=== PATIENT | male | born 2005 | race Caucasian/White ===

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

== ENCOUNTER 2023-08-06 16:34 | Emergency (ER) | payer MEDICAID, SELFPAY ==
[2023-08-06] VITALS (7 sets, daily range): BP systolic 105–142; BP diastolic 63–93; PULSE 67–96; RESP 15–21; TEMP 36.6; O2SAT 96–98; BMI 7469.4
--- NOTE | 2023-08-06 16:40 | XRR_ITS ---
PROCEDURE INFORMATION: Exam: XR Chest Exam date and time: 08/06/2023 4:59 PM Age: 18 years old Clinical indication: Angina pectoris; Patient HX: Chest pain; SOB TECHNIQUE: Imaging protocol: Radiologic exam of the chest. Views: 1 view. COMPARISON: CR XR ribs RT 2V* [id number] 04/02/2019 9:10 AM FINDINGS: Lungs: Lung volumes are large. Lungs are clear. There is an incidental right azygos lobe and fissure. Pleural spaces: No definite pleural effusions or pneumothorax. Heart/Mediastinum: Normal. Bones/joints: Unremarkable. XR/XR chest 1V portable [id number] IMPRESSION: Normal.
--- NOTE | 2023-08-06 16:43 | ECG_ITS ---
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 Measurements Intervals [place] Rate: 115 P: 62 MT: 101 QRS: 83 QRSD: 93 T: -20 QT: 319 QTc: 443 Interpretive Statements SINUS TACHYCARDIA WITH SHORT MT INTERVAL NONSPECIFIC ST & T-WAVE ABNORMALITY No previous ECG available for comparison Electronically Signed On 08-07-2023 8:36:49 WOODWINDS TEACHER by Mukund Sawant M.D. [email or web address]
[2023-08-06 17:40] LABS: Basophils % 0.3 %; Eosinophils % 0.2 %; Hematocrit 41.8 % (37-53); Lymphocytes # 1.7 10^3/uL (1.5-6.5); Lymphocytes % 14.6 %; Mean Corpuscular HGB Conc 34.7 g/dL (30-55); Mean Corpuscular Hemoglobin 29.2 pg (27-33); Mean Corpuscular Volume 84.3 fl (82-101); Mean Platelet Volume 9.7 fL (7.4-10.4); Monocytes # 0.8 10^3/uL (0.2-0.9); Monocytes % 7.3 %; Neutrophils # 8.92 10^3/uL (1.8-8.0); Neutrophils % 77.3 %; Nucleated Red Blood Cells % 0 %; Platelet Count 343 10^3/cmm (157-399); Red Blood Count 4.96 10^6/uL (3.85-5.65); Red Cell Distribution Width 12.8 % (12.1-15.1); White Blood Count 11.54 10^3/uL (4.5-13.0)
--- NOTE | 2023-08-06 17:54 | ED_ITS ---
HPI - General Adult 2 General: Chief complaint: General Medical Stated complaint: chest pain, sob Time Seen by Provider: 08/06/23 17:31 History of Present Illness: 18-year-old male who has been using fent anyl daily. His last use was yesterday afternoon. He presents complaining of shortness of breath, rapid breathing, numbness and tingling to his upper extremities, face, and to a lesser degree lower extremities. He is having some mild chest discomfort. He denies fever or cough. He is somewhat improved now. He has been having diarrhea and vomiting as well today. Associated symptoms: Reports chest pain, dyspnea, nausea, palpitations and vomiting; Deny rash Review of Systems 2 Const: Denies: fever(s) Eyes: Denies: change in vision ENMT: Denies: throat pain Card: Reports: chest pain and palpitations Resp: Reports: dyspnea; Denies: productive cough or non-productive cough GI: Reports: abdominal pain, nausea, vomiting and diarrhea Skin/Breast: Denies: rash Neuro: Reports: numbness in extremities and dizziness Psych: Reports: anxiety Physical Exam 2 Const: GENERAL APPEARANCE: cooperative, anxious and ill appearing (Mildly); not frail appearing HENMT: COMMON NORMALS: normocephalic, atraumatic and Normal external nose present HEAD & SCALP: normocephalic and atraumatic FACE & SINUS: normal facial exam and face symmetric NOSE: Normal external nose present Eye: COMMON NORMALS: Equal, round and reactive pupils present and EOMs intact bilaterally PUPIL: Yes Equal, round and reactive pupils present Neck/C-Spine: GENERAL: Yes trachea midline Chest: CHEST: Yes Symmetrical chest wall rise Resp: COMMON NORMALS: No retractions and clear to auscultation bilaterally EFFORT & INSPECTION: Yes tachypneic AUSCULTATION: clear to auscultation bilaterally Cardio: COMMON NORMALS: regular rhythm RATE: tachycardic RHYTHM: regular rhythm GI: COMMON NORMALS: Normal to inspection, nondistended, normoactive bowel sounds present Extremity: COMMON NORMALS: no pedal edema Neuro: STEVENSON COMA SCALE: document GCS findings Stevenson coma scale eye opening: Spontaneous [place] coma scale verbal response: Orientated Stevenson coma scale motor response: Obey commands Stevenson coma scale total score: 15 S ENSORY EXAM: Yes extremities (intact) Psych: COMMON NORMALS: speech normal SPEECH: Yes normal speech Skin: COMMON NORMALS: no rashes or lesions noted GENERAL SKIN EXAM: no rashes or lesions noted Course 2 Vital Signs: Vital signs: Vital Signs Temperature 97.9 F 08/06/23 16:45 Pulse Rate 87 08/06/23 21:21 Respiratory Rate 21 H 08/06/23 21:10 Blood Pressure 105/73 08/06/23 21:21 Pulse Oximetry 98 08/06/23 21:21 Oxygen Delivery Me thod Room Air 08/06/23 21:10 MDM - General Adult Medical Decision Making 18-year-old male withdrawing from opioids. Currently not tachycardic. He is resting comfortably after Ativan and Zofran here. CBC is normal. Bicarbonate is 20. He has received 2 L of fluid. Chest x-ray is normal. His EKG is normal. He will be allowed discharge. If he desires inpatient treatment, he is given resources for [facility] in [facility]. He will otherwise return for worsening symptoms. He will be treated symptomatically. Lab Data 08/06/23 16:57 08/06/23 16:57 Radiology Impressions Chest X-Ray 08/06/23 16:40 IMPRESSION: Normal. Laboratory Results WBC 11.54 10^3/uL (4.5-13.0) 08/06/23 16:57 RBC 4.96 10^6/uL (3.85-5.65) 08/06/23 16:57 Hgb 14.50 g/dL (13.2-15.6) 08/06/23 16:57 Hct 41.8 % (37-53) 08/06/23 16:57 MCV 84.3 fl (82-101) 08/06/23 16:57 MCH 29.2 pg (27-33) 08/06/23 16:57 MCHC 34.7 g/dL (30-55) 08/06/23 16:57 RDW 12.8 % (12.1-15.1) 08/06/23 16:57 Plt Count 343 10^3/cmm (157-399) 08/06/23 16:57 MPV 9.7 fL (7.4-10.4) 08/06/23 16:57 Neut % (Auto) 77.3 % 08/06/23 16:57 Lymph % (Auto) 14.6 % 08/06/23 16:57 [place] % (Auto) 7.3 % 08/06/23 16:57 Eos % (Auto) 0.2 % 08/06/23 16:57 Baso % (Auto) 0.3 % 08/06/23 16:57 Neut # (Auto) 8.92 10^3/uL (1.8-8.0) H 08/06/23 16:57 Lymph # (Auto) 1.7 10^3/uL (1.5-6.5) 08/06/23 16:57 [place] # (Auto) 0.8 10^3/uL (0.2-0.9) 08/06/23 16:57 Eos # (Auto) 0.0 10^3/uL (0.0-0.8) 08/06/23 16:57 Baso # (Auto) 0.0 10^3/uL (0.0-0.1) 08/06/23 16:57 Nucleated RBC % (auto) 0 % 08/06/23 16:57 Nucleated RBCs # 0.0 /100WBC 08/06/23 16:57 Sodium 138 mmol/L (136-145) 08/06/23 16:57 Potassium 3.7 mmol/L (3.5-5.1) 08/06/23 16:57 Chloride 98 mmol/L (98-107) 08/06/23 16:57 Carbon Dioxide 20 mmol/L (22-29) L 08/06/23 16:57 Anion Gap 23.7 (5-19) H 08/06/23 16:57 BUN 14 mg/dL (6-20) 08/06/23 16:57 Creatinine 0.7 mg/dL (0.7-1.2) 08/06/23 16:57 GFR Calculation 143.8 mL/min (90-130) H 08/06/23 16:57 Glucose 103 mg/dL (65-115) 08/06/23 16:57 Calculated Osmolality 287 mOsm/kg (285-295) 08/06/23 16:57 Calcium 10.4 mg/dL (8.5-10.5) 08/06/23 16:57 Magnesium 2.3 mg/dL (1.7-2.3) 08/06/23 16:57 Total Bilirubin 0.4 mg/dL (0.15-1.2) 08/06/23 16:57 AST 21 U/L (0-40) 08/06/23 16:57 ALT 33 U/L (0-41) 08/06/23 16:57 Alkaline Phosphatase 53 U/L (40-130) 08/06/23 16:57 Total Protein 8.6 g/dL (6.6-8.7) 08/06/23 16:57 Albumin 5.4 g/dL (3.5-5.2) H 08/06/23 16:57 Globulin 3.2 g/dL (1.3-4.6) 08/06/23 16:57 Urine Color Yellow (Yellow) 08/06/23 18:59 Urine Appearance Clear (CLEAR) 08/06/23 18:59 Urine pH 9 (5-7) H 08/06/23 18:59 Ur Specific [place] 1.010 (1.005-1.030) 08/06/23 18:59 Urine Protein Neg (Negative) 08/06/23 18:59 Urine Glucose (UA) Norm (Normal) 08/06/23 18:59 Urine Ketones 1+ (Negative) H 08/06/23 18:59 Urine Blood Neg (Negative) 08/06/23 18:59 Urine Nitrate Negative (Negative) 08/06/23 18:59 Urine Bilirubin Neg (Negative) 08/06/23 18:59 Prot Sulfosalicylic Acd Negative (Negative) 08/06/23 18:59 Urine Urobilinogen Norm mg/dL (Negative) 08/06/23 18:59 Ur Leukocyte Esterase Negative (Negative) 08/06/23 18:59 Urine Opiates Screen Negative ng/mL (Negative) 08/06/23 18:59 Ur Barbiturates Screen Negative ng/mL (Negative) 08/06/23 18:59 Ur Phencyclidine Scrn Negative ng/mL (Negative) 08/06/23 18:59 Ur Amphetamines Screen Negative ng/mL (Negative) 08/06/23 18:59 U Benzodiazepines Scrn Negative ng/mL (Negative) 08/06/23 18:59 Urine Cocaine Screen Negative ng/mL (Negative) 08/06/23 18:59 U Marijuana (THC) Screen Positive ng/mL (Negative) H 08/06/23 18:59 All radiology interpretation(s) finalized by discharge Discharge Plan Discharge Patient Disposition: Home Clinical Impression: Acute opioid withdrawal Condition: Stable Prescriptions: New ondansetron 4 mg tablet,disintegrating 4 mg PO Q6H PRN (Reason: nausea and vomiting) Qty: 14 0RF clonidine 0.1 mg/24 hr patch weekly 1 patch transdermal ONCE Qty: 1 0RF No Action Augmentin 875-125 mg tablet 1 tab PO BID Qty: 14 0RF Rx Instructions: take 1 PO BID Discharge Orders: Discharge ED (Routine); Ordered 08/06/23 Ordered By: Sudeep Garvey Referrals: Tyree Osuna MD [Primary Care Provider] - Patient Instructions: Opioid Withdrawal (ED), Opioid Safety, Pain Management Activity Restrictions/Additional Instructions: Take nausea medication prescribed scheduled every 4 hours while awake for the first 48 hours, then as needed after that. Keep your patch applied in the ER on for the next 48 hours at least. Return for any problems. If you desire inpatient rehabilitation, the [facility] here in [facility] is a good resource. Coding Level of Care Code ED Grounds Foreman for Areli Hernandez
[2023-08-06] MEDS: sodium chloride 0.9% 1,000 ML 999 ML IV ×2 (17:58→19:08)
[2023-08-06 18:00] LABS: Alanine Aminotransferase 33 U/L (0-41); Albumin Level 5.4 g/dL (3.5-5.2); Alkaline Phosphatase 53 U/L (40-130); Anion Gap 23.7 (5-19); Aspartate Amino Transferase 21 U/L (0-40); Blood Urea Nitrogen 14 mg/dL (6-20); Calcium 10.4 mg/dL (8.5-10.5); Carbon Dioxide 20 mmol/L (22-29); Chloride 98 mmol/L (98-107); Globulin 3.2 g/dL (1.3-4.6); Glomerular Filtration Rate 143.8 mL/min (90-130); Glucose 103 mg/dL (65-115); Magnesium 2.3 mg/dL (1.7-2.3); Osmolality Calculated 287 mOsm/kg (285-295); Potassium 3.7 mmol/L (3.5-5.1); Sodium 138 mmol/L (136-145); Total Bilirubin 0.4 mg/dL (0.15-1.2); Total Protein 8.6 g/dL (6.6-8.7)
[2023-08-06] MEDS: ondansetron 2 mg/ML SDV 2 mL 4 MG IVP (18:00)
[2023-08-06] MEDS: LORazepam 2 mg/mL INJ 10 mL MDV 1 MG IVP (18:02)
[2023-08-06 19:06] LABS: Add Urine Microscopic? NO; Charge for UA Resulting for Rev
[2023-08-06 19:12] LABS: Urine Appearance Clear (CLEAR); Urine Color Yellow (Yellow)
[2023-08-06 19:13] LABS: Bilirubin Urine Neg (Negative); Blood Urine Neg (Negative); Glucose Urine UA Norm (Normal); Ketones Urine 1+ (Negative); Leukocyte Esterase Urine Negative (Negative); Nitrate Urine Negative (Negative); Protein Urine Neg (Negative); Sulfosalicylic Acid Urine Negative (Negative); Urobilinogen Urine Norm (Negative); pH Urine 9 (5-7)
[2023-08-06 19:17] LABS: Amphetamines Screen Urine Negative (Negative); Barbiturates Screen Urine Negative (Negative); Benzodiazepines Screen Urine Negative (Negative); Cocaine Screen Urine Negative (Negative); Opiate Screen Urine Negative (Negative); PCP Screen Urine Negative (Negative); THC Screen Urine Positive (Negative)
== END 2023-08-06 21:22 | disposition home or self-care (01) ==
PROVIDERS: Emergency Provider Emergency Medicine; PCP Family Medicine
DX: F11.23 Opioid dependence with withdrawal (principal)
CPT/HCPCS: 71045; 80053; 80306; 81003; 83735; 85025; 93005; 96361; 96374; 96375; 99285; J2060; J2405; J7030

== ENCOUNTER 2023-09-14 14:53 | Emergency (ER) | payer MEDICAID, SELFPAY ==
[2023-09-14 14:55] VITALS: BP 136/72; PULSE 124; RESP 18; TEMP 36.4; O2SAT 97; BMI 23.7
--- NOTE | 2023-09-14 14:59 | CT_ITS ---
WS: [id number] CT HEAD NONCONTRAST HISTORY: seizure TECHNIQUE: Contiguous axial imaging performed through the brain in 2.5 mm imaging. Bone and soft tiss ue windows. Sagittal and coronal reformats reviewed. All CT scans at [facility] use at least one of these dose optimization techniques: automated exposure control; mA and/or kV adjustment per pa tient size (includes targeted exams where dose is matched to clinical indication); or iterative recon struction. DLP: 1087.64 mGy.cm COMPARISON: None available. No acute intracranial hemorrhage, midline shift or mass effect. No atrophy or prior infarcts or herniation. Ventricles: Normal size with no hydrocephalus. Paranasal sinuses: As visualized are clear. Mastoid air cells: Well pneumatized. Calvarium and scalp: Skull is intact with no soft tissue edema or swelling. IMPRESSION: Negative head CT.
--- NOTE | 2023-09-14 15:01 | ED_ITS ---
HPI - Seizure 2 General: Chief Complaint: Seizure Stated Complaint: seizure activity Time Seen by Provider: 09/14/23 14:55 Source: patient and EMS Mode of arrival: EMS Limitations: no limitations History of Present Illness: HPI Narrative: 18-year-old male with a history of fenta nyl abuse patient had a witnessed seizure today just prior to arrival lasted roughly 30 seconds no known head injury has no history of seizures EMS states that he was originally postictal he is now awake and answer my questions he denies any vomiting diarrhea or headache. Associated symptoms: Deny chest pain, chills or fever(s) Review of Systems 2 Const: Denies: fever(s), chills, body aches or change in appetite Eyes: Denies: blurry vision or eye discomfort ENMT: Denies: throat pain or dental pain Card: Denies: chest pain Resp: Denies: dyspnea GI: Denies: abdominal pain, nausea, vomiting or diarrhea Musc: Denies: neck pain or back pain Skin/Breast: Denies: rash Neuro: Reports: seizure-like activity; Denies: headache(s) PFSH ED 2 PFSH: Medical History Psychiatric care Physical Exam 2 Const: COMMON NORMALS: no acute distress, patient oriented x3 and healthy appearing HENMT: COMMON NORMALS: normocephalic and atraumatic HEAD & SCALP: n ormocephalic and atraumatic Eye: COMMON NORMALS: Equal, round and reactive pupils present and EOMs intact bilaterally PUPIL: Yes Equal, round and reactive pupils present Neck/C-Spine: COMMON NORMALS: full ROM and supple Chest: COMMONS NORMALS: normal inspection of the chest and normal palpation of entire chest wall Resp: COMMON NORMALS: normal respiratory effort, No retractions, No use of accessory muscles and clear to auscultation bilaterally AUSCULTATION: clear to auscultation bilaterally Cardio: COMMON NORMALS: regular rate, regular rhythm and No murmurs present (Cardio) RATE: regular rate RHYTHM: regular rhythm Extremity: COMMON NORMALS: normal to inspection and full ROM Neuro: COMMON NORMALS: patient oriented x3, moves all extremities and no focal motor deficits Psych: COMMON NORMALS: mental status grossly normal, Normal thought process present and cooperative THOUGHT PROCESS: Normal thought process present Skin: COMMON NORMALS: no rashes or lesions noted and no wounds GENERAL SKIN EXAM: no rashes or lesions noted Course 2 Vital Signs: Vital signs: Vital Signs Temperature 97.6 F 09/14/23 14:55 Pulse Rate 84 09/14/23 17:30 Respiratory Rate 18 09/14/23 17:30 Blood Pressure 136/72 09/14/23 14:55 Pulse Oximetry 94 09/14/23 17:30 Oxygen Delivery Me thod Room Air 09/14/23 14:55 MDM - Seizure MDM Narrative Medical decision making narrative: Patient presents here after a seizure he has been well-appearing here he did have an anion gap likely from his seizures repeat BMP was normal he feels improved we will give him neurology follow-up he is to return if worsening. Lab Data 09/14/23 16:48 Labs: Laboratory Results Sodium 142 mmol/L (136-145) 09/14/23 16:48 Potassium 3.8 mmol/L (3.5-5.1) 09/14/23 16:48 Chloride 110 mmol/L (98-107) H 09/14/23 16:48 Carbon Dioxide 24 mmol/L (22-29) 09/14/23 16:48 Anion Gap 11.8 (5-19) 09/14/23 16:48 BUN 6 mg/dL (6-20) 09/14/23 16:48 Creatinine 0.6 mg/dL (0.7-1.2) L 09/14/23 16:48 GFR Calculation 171.8 mL/min (90-130) H 09/14/23 16:48 Glucose 95 mg/dL (65-115) 09/14/23 16:48 Calculated Osmolality 291 mOsm/kg (285-295) 09/14/23 16:48 Calcium 8.2 mg/dL (8.5-10.5) L 09/14/23 16:48 All radiology interpretation(s) finalized by discharge Discharge Plan Discharge Patient Disposition: Home Clinical Impression: Generalized seizure Condition: Stable Prescriptions: No Action ondansetron 4 mg tablet,disintegrating 4 mg PO Q6H PRN (Reason: nausea and vomiting) Qty: 14 0RF Discharge Orders: Discharge ED (Routine); Ordered 09/14/23 Ordered By: Popeye Santana Referrals: Anahy Jin MD [Physician] - 1-3 days Tyree Osuna MD [Primary Care Provider] - Discharge Diet: Advance as tolerated Discharge Activity: Resume usual activity Patient Instructions: Generalized Tonic Clonic Seizures (ED) Coding Level of Care Code ED Inside Sales Manager for Areli Hernandez
[2023-09-14 15:24] LABS: Anion Gap 39.8 (5-19); Blood Urea Nitrogen 6 mg/dL (6-20); Calcium 9.8 mg/dL (8.5-10.5); Chloride 98 mmol/L (98-107); Glomerular Filtration Rate 107.6 mL/min (90-130); Glucose 129 mg/dL (65-115); Osmolality Calculated 293 mOsm/kg (285-295); Potassium 3.8 mmol/L (3.5-5.1); Sodium 142 mmol/L (136-145)
[2023-09-14] MEDS: LORazepam 2 mg/mL INJ 10 mL MDV 1 MG IVP (15:32)
[2023-09-14] MEDS: sodium chloride 0.9% 1,000 ML 999 ML IV ×2 (15:32→15:51)
[2023-09-14 15:38] LABS: Carbon Dioxide 8 mmol/L (22-29)
[2023-09-14 16:30] VITALS: PULSE 84; RESP 18; O2SAT 94
[2023-09-14 17:20] LABS: Anion Gap 11.8 (5-19); Blood Urea Nitrogen 6 mg/dL (6-20); Calcium 8.2 mg/dL (8.5-10.5); Carbon Dioxide 24 mmol/L (22-29); Chloride 110 mmol/L (98-107); Creatinine Clr Calc Pharmacy 223.8856; Glomerular Filtration Rate 171.8 mL/min (90-130); Glucose 95 mg/dL (65-115); Osmolality Calculated 291 mOsm/kg (285-295); Potassium 3.8 mmol/L (3.5-5.1); Sodium 142 mmol/L (136-145)
[2023-09-14 17:30] VITALS: PULSE 84; RESP 18; O2SAT 94
--- NOTE | 2023-09-15 00:52 | DCPLANNER ---
Message sent to neurology for follow on Seizures
== END 2023-09-14 17:33 | disposition home or self-care (01) ==
PROVIDERS: Emergency Provider Emergency Medicine; PCP Family Medicine
DX: G40.89 Other seizures (principal)
CPT/HCPCS: 36415; 70450; 80048; 96374; 99285; J2060; J7030

== ENCOUNTER 2023-10-04 09:26 | Emergency (ER) | payer MEDICAID, SELFPAY ==
[2023-10-04 09:40] VITALS: BP 112/60; PULSE 73; RESP 18; TEMP 36.4; O2SAT 98; BMI 23.1
--- NOTE | 2023-10-04 09:51 | PC.PHAR ---
pt states he takes care of his own medications-pt states he goes to [facility] and takes methadone 20mg qam pt states had am dose today 10/04/23-pt states he takes a multivitamin sometimes pt states not had for 6 days-pt states he has zofran to take prn-pt states the only medications he has is what is entered
[2023-10-04 10:04] LABS: Basophils % 0.6 %; Eosinophils # 0.2 10^3/uL (0.0-0.8); Eosinophils % 3.1 %; Hematocrit 39.7 % (37-53); Lymphocytes # 1.7 10^3/uL (1.5-6.5); Lymphocytes % 25.5 %; Mean Corpuscular HGB Conc 34.3 g/dL (30-55); Mean Corpuscular Volume 87.6 fl (82-101); Mean Platelet Volume 10.1 fL (7.4-10.4); Monocytes # 0.6 10^3/uL (0.2-0.9); Monocytes % 9.2 %; Neutrophils # 3.98 10^3/uL (1.8-8.0); Neutrophils % 61.3 %; Nucleated Red Blood Cells % 0 %; Platelet Count 206 10^3/cmm (157-399); Red Blood Count 4.53 10^6/uL (3.85-5.65)
[2023-10-04 10:22] LABS: Alanine Aminotransferase 35 U/L (0-41); Albumin Level 4.5 g/dL (3.5-5.2); Alkaline Phosphatase 64 U/L (40-130); Aspartate Amino Transferase 31 U/L (0-40); Blood Urea Nitrogen 12 mg/dL (6-20); Calcium 9.4 mg/dL (8.5-10.5); Carbon Dioxide 25 mmol/L (22-29); Chloride 104 mmol/L (98-107); Creatinine Clr Calc Pharmacy 189.7419; Globulin 2.3 g/dL (1.3-4.6); Glomerular Filtration Rate 143.8 mL/min (90-130); Glucose 75 mg/dL (65-115); Osmolality Calculated 286 mOsm/kg (285-295); Sodium 139 mmol/L (136-145); Total Bilirubin 0.4 mg/dL (0.15-1.2); Total Protein 6.8 g/dL (6.6-8.7)
[2023-10-04 10:40] LABS: Creatine Phosphokinase 200 U/L (39-308); Lactic Sepsis W/Reflex 0.7 mmol/L (0.5-2.2); Magnesium 1.8 mg/dL (1.7-2.3)
--- NOTE | 2023-10-04 10:42 | ED_ITS ---
HPI - Weakness 2 General: Chief complaint: Weakness Stated complaint: Weakness Time Seen by Provider: 10/04/23 09:47 Source: patient Mode of arrival: ambulatory History of Present Illness: 18-year-old male presents emergency room with complaint of lethargy and fatigue. Patient with slept about 4-4 and half hours last night, he played video games till around midnight and then woke up at 430. He went to the methadone clinic got his usual dose of methadone, they have not recently changed that he had previously been using IV fentanyl. He had previously had an overdose on fentanyl. He had a seizure associated with that. There is no known recent seizure activity or witnessed seizure activity today. He denies using any fentanyl recently. His parents are with him states he feels like he is having similar symptoms as when he overdosed on fentanyl. He denies any recent fever sweats or chills. MD Complaint: generalized weakness Onset (ago): hour(s) Associated symptoms: Denies chest pain, chills, confusion, melena, decreased appetite, diaphoresis, dysuria, easy bruising, fever(s), headache(s), myalgias, nausea, rash, short of breath, syncope or vomiting Review of Systems 2 Const: Denies: fever(s), chills or diaphoresis Card: Denies: chest pain or syncope Resp: Denies: dyspnea GI: Denies: nausea, vomiting or melena : Denies: dysuria Musc: Denies: neck pain or back pain Skin/Breast: Denies: rash Neuro: Denies: headache(s) or confusion [place]/Lymph: Denies: easy bruising PFSH ED 2 PFSH: Medical History Psychiatric care Physical Exam 2 Const: GENERAL APPEARANCE: cooperative, comfortable and lethargic (But arousable) ORIENTATION/CONSCIOUSNESS: Yes oriented to person, Yes oriented to place, Yes oriented to time and Yes lethargic (But arousable) HENMT: COMMON NORMALS: normocephalic, atraumatic and hearing grossly normal bilaterally HEAD & SCALP: normocephalic and atraumatic Resp: COMMON NORMALS: normal respiratory effort, No retractions, No use of accessory muscles and clear to auscultation bilaterally AUSCULTATION: clear to auscultation bilaterally Cardio: COMMON NORMALS: regular rate, regular rhythm and No murmurs present (Cardio) RATE: regular rate RHYTHM: regular rhythm GI: COMMON NORMALS: Soft to palpation and No hepatosplenomegaly present A USCULTATION: Yes normoactive bowel sounds PALPATION: Yes Soft to palpation, No Tenderness to palpation present (GI), No Guarding due to palpation present (GI) and Yes No hepatosplenomegaly present Extremity: COMMON NORMALS: normal to inspection, capillary refill normal, no clubbing, cyanosis or edema, no calf tenderness and no pedal edema Neuro: SENSORIUM/ORIENTATION: Yes oriented to person, Yes oriented to place, Yes oriented to time and Yes lethargic (But arousable) Skin: COMMON NORMALS: no rashes or lesions noted GENERAL SKIN EXAM: no rashes or lesions noted Course 2 Vital Signs: Vital signs: Vital Signs Temperature 97.5 F L 10/04/23 09:40 Pulse Rate 73 10/04/23 10:52 Respiratory Rate 18 10/04/23 10:52 Blood Pressure 126/80 10/04/23 13:09 Pulse Oximetry 98 10/04/23 13:09 Oxygen Delivery Me thod Room Air 10/04/23 13:09 MDM - Weakness Medical Decision Making Extensive workup no significant findings was hesitant to give the patient Narcan because of his reported history of seizure associated with his opioid withdrawal. However after extensive workup he is still quite sedate. However he was able to control his airway and his sats remained good the entire time. I am able to wake him he is able to talk some he will doze off mid conversation he is adamant that he has not used any other source of narcotics. He is also quite certain they did not change his methadone dose. His parents state he was sedate yesterday and is even more sedate today which led him to bringing him into the emergency room he was given 0.4 mg of Narcan he had significant improvement he is more awake and alert he is still adamant that he has not taken any other outside sources and is not had a dose change in his methadone. Will discharge him home. Parents are concerned because of his history of overdose would like to have Narcan available in the event that he has another overdose in the future. We did give the Narcan nasal spray cautioned them regarding its usage to only be used with severe symptoms and also advised him it can potentially precipitate a seizure with his history. Patient family encouraged to cut to contact the methadone clinic he may require dose adjustment Medical Records I reviewed the patient's medical records. Lab Data I reviewed the patient's lab results. 10/04/23 09:59 10/04/23 09:59 Laboratory Results WBC 6.50 10^3/uL (4.5-13.0) 10/04/23 09:59 RBC 4.53 10^6/uL (3.85-5.65) 10/04/23 09:59 Hgb 13.60 g/dL (13.2-15.6) 10/04/23 09:59 Hct 39.7 % (37-53) 10/04/23 09:59 MCV 87.6 fl (82-101) 10/04/23 09:59 MCH 30.0 pg (27-33) 10/04/23 09:59 MCHC 34.3 g/dL (30-55) 10/04/23 09:59 RDW 12.0 % (12.1-15.1) L 10/04/23 09:59 Plt Count 206 10^3/cmm (157-399) 10/04/23 09:59 MPV 10.1 fL (7.4-10.4) 10/04/23 09:59 Neut % (Auto) 61.3 % 10/04/23 09:59 Lymph % (Auto) 25.5 % 10/04/23 09:59 [place] % (Auto) 9.2 % 10/04/23 09:59 Eos % (Auto) 3.1 % 10/04/23 09:59 Baso % (Auto) 0.6 % 10/04/23 09:59 Neut # (Auto) 3.98 10^3/uL (1.8-8.0) 10/04/23 09:59 Lymph # (Auto) 1.7 10^3/uL (1.5-6.5) 10/04/23 09:59 [place] # (Auto) 0.6 10^3/uL (0.2-0.9) 10/04/23 09:59 Eos # (Auto) 0.2 10^3/uL (0.0-0.8) 10/04/23 09:59 Baso # (Auto) 0.0 10^3/uL (0.0-0.1) 10/04/23 09:59 Nucleated RBC % (auto) 0 % 10/04/23 09:59 Nucleated RBCs # 0.0 /100WBC 10/04/23 09:59 Sodium 139 mmol/L (136-145) 10/04/23 09:59 Potassium 4.0 mmol/L (3.5-5.1) 10/04/23 09:59 Chloride 104 mmol/L (98-107) 10/04/23 09:59 Carbon Dioxide 25 mmol/L (22-29) 10/04/23 09:59 Anion Gap 14.0 (5-19) 10/04/23 09:59 BUN 12 mg/dL (6-20) 10/04/23 09:59 Creatinine 0.7 mg/dL (0.7-1.2) 10/04/23 09:59 GFR Calculation 143.8 mL/min (90-130) H 10/04/23 09:59 Glucose 75 mg/dL (65-115) 10/04/23 09:59 Calculated Osmolality 286 mOsm/kg (285-295) 10/04/23 09:59 Lactic Acid 0.7 mmol/L (0.5-2.2) 10/04/23 09:59 Calcium 9.4 mg/dL (8.5-10.5) 10/04/23 09:59 Magnesium 1.8 mg/dL (1.7-2.3) 10/04/23 09:59 Total Bilirubin 0.4 mg/dL (0.15-1.2) 10/04/23 09:59 AST 31 U/L (0-40) 10/04/23 09:59 ALT 35 U/L (0-41) 10/04/23 09:59 Alkaline Phosphatase 64 U/L (40-130) 10/04/23 09:59 Creatine Kinase 200 U/L (39-308) 10/04/23 09:59 Total Protein 6.8 g/dL (6.6-8.7) 10/04/23 09:59 Albumin 4.5 g/dL (3.5-5.2) 10/04/23 09:59 Globulin 2.3 g/dL (1.3-4.6) 10/04/23 09:59 Urine Color Yellow (Yellow) 10/04/23 10:55 Urine Appearance Clear (CLEAR) 10/04/23 10:55 Urine pH 7 (5-7) 10/04/23 10:55 Ur Specific Needles 1.005 (1.005-1.030) 10/04/23 10:55 Urine Protein Neg (Negative) 10/04/23 10:55 Urine Glucose (UA) Norm (Normal) 10/04/23 10:55 Urine Ketones Negative (Negative) 10/04/23 10:55 Urine Blood Neg (Negative) 10/04/23 10:55 Urine Nitrate Negative (Negative) 10/04/23 10:55 Urine Bilirubin Neg (Negative) 10/04/23 10:55 Urine Urobilinogen Norm mg/dL (Negative) 10/04/23 10:55 Ur Leukocyte Esterase Negative (Negative) 10/04/23 10:55 Urine Opiates Screen Negative ng/mL (Negative) 10/04/23 10:55 Ur Barbiturates Screen Negative ng/mL (Negative) 10/04/23 10:55 Ur Phencyclidine Scrn Negative ng/mL (Negative) 10/04/23 10:55 Ur Amphetamines Screen Negative ng/mL (Negative) 10/04/23 10:55 U Benzodiazepines Scrn Positive ng/mL (Negative) H 10/04/23 10:55 Urine Cocaine Screen Negative ng/mL (Negative) 10/04/23 10:55 U Marijuana (THC) Screen Positive ng/mL (Negative) H 10/04/23 10:55 All radiology interpretation(s) finalized by discharge Discharge Plan Discharge Patient Disposition: Home Clinical Impression: Medication side effects, Opioid dependence Condition: Stable Prescriptions: New Narcan 4 mg/actuation spray,non-aerosol 4 mg intranasal Q2M PRN (Reason: opioid overdose) Qty: 2 0RF Rx Instructions: spray 1 dose into ONE nostril; alternate nostrils w each dose until help arrives No Action ondansetron 4 mg tablet,disintegrating 4 mg PO Q6H PRN (Reason: nausea and vomiting) Qty: 14 0RF multivitamin Tablet 1 tab PO DAILY PRN (Reason: unknown) methadone 40 mg Tablet,Soluble 20 mg PO QAM Discharge Orders: Discharge ED (Routine); Ordered 10/04/23 Ordered By: Sage Morel Referrals: Tyree Osuna MD [Primary Care Provider] - Discharge Diet: Usual diet Discharge Activity: Increase activity as tolerated Patient Instructions: Opioid Safety, Pain Management Activity Restrictions/Additional Instructions: Thank you for choosing [facility] for your healthcare needs today. Please realize this is an emergency room and that we are providing you with a medical screening exam and this may not be complete and all inclusive of all the testing and or work up that you may need to determine your ailment or severity of your illness. It is very important that you follow up as instructed or that you return to the Emergency Department should you have concerns or if your condition changes or worsens in any way. Recommend follow-up with the methadone clinic to discuss the oversedation episodes yesterday and today that resulted in the emergency room visit. A adjustment in your methadone dose may be in order. You were given a prescription for Narcan today. This should only be used for severe sedation. It is possible given your history that it could precipitate a seizure. We have also contacted case management to try to move up the date of your neurology consult Coding Level of Care Code ED Air Conditioning Specialist for Areli Hernandez
[2023-10-04 10:52] VITALS: BP 112/60; PULSE 73; RESP 18; O2SAT 98
[2023-10-04 11:05] LABS: Add Urine Microscopic? NO; Charge for UA Resulting for Rev
[2023-10-04 11:10] LABS: Bilirubin Urine Neg (Negative); Blood Urine Neg (Negative); Glucose Urine UA Norm (Normal); Ketones Urine Negative (Negative); Leukocyte Esterase Urine Negative (Negative); Nitrate Urine Negative (Negative); Protein Urine Neg (Negative); Specific Gravity, Urine 1.005 (1.005-1.030); Urine Appearance Clear (CLEAR); Urine Color Yellow (Yellow); Urobilinogen Urine Norm (Negative); pH Urine 7 (5-7)
[2023-10-04 11:18] LABS: Amphetamines Screen Urine Negative (Negative); Barbiturates Screen Urine Negative (Negative); Benzodiazepines Screen Urine Positive (Negative); Cocaine Screen Urine Negative (Negative); Opiate Screen Urine Negative (Negative); PCP Screen Urine Negative (Negative); THC Screen Urine Positive (Negative)
--- NOTE | 2023-10-04 11:56 | CT_ITS ---
WS: [id number] Examination: CT head wo con* [id number] Reason for Exam: AMS Date: October 04, 2023 Comparison: September 14, 2023 DLP: 1094.[address] scans at [facility] use at least one of these dose optimization techniques: automated e xposure control; mA and/or kV adjustment per patient size (includes targeted exams where dose is matc hed to clinical indication); or iterative reconstruction. Findings: There is mild frontal and ethmoid sinus disease. The ventricles and sulci are within normal limits. There is no midline shift or hydrocephalus There is good bess-white matter differentiation. There is no intracranial hemorrhage or hematoma. Impression: There is no hemorrhage or hydrocephalus.
[2023-10-04] MEDS: naloxone 0.4 mg/ml SDV 0.400000000000000022 MG IVP (13:08)
[2023-10-04 13:09] VITALS: BP 126/80; O2SAT 98
--- NOTE | 2023-10-05 07:24 | DCPLANNER ---
A message was sent to neurology on 10/05/23 at 0732. Clinic to contact patient for appt
== END 2023-10-04 13:40 | disposition home or self-care (01) ==
PROVIDERS: Emergency Provider Family Medicine; PCP Family Medicine
DX: R53.83 Other fatigue (principal); T40.3X5A Adverse effect of methadone, initial encounter; F11.20 Opioid dependence, uncomplicated
CPT/HCPCS: 70450; 80053; 80306; 81003; 82550; 83605; 83735; 85025; 96374; 99285; J2310

== ENCOUNTER 2023-10-12 17:33 | Emergency (ER) | payer MEDICAID, SELFPAY ==
[2023-10-12 17:35] VITALS: BP 116/83; PULSE 119; TEMP 36.8; O2SAT 100; BMI 23.1
--- NOTE | 2023-10-12 17:51 | PC.NURSE ---
PATIENT WALKED OUT OF ROOM 11 TO [place] [address]. PATIENT STOPPED AT DOOR. PATIENT BLEEDING FROM IV SITE. PATIENT REMOVED ALL LEADS. PATIENT STATED THAT HE WANTED TO LEAVE. I HAVE BEEN NARCANNED AND I AM FINE. I WANT TO GO. PROVIDER AND SECURITY PRESENT. PATIENT STATES THAT I AM 18 YEARS OLD AND YOU CANNOT HOLD ME SO I WANT TO LEAVE. PROVIDER VERBALIZED PATIENT DESIRE AND LET PATIENT LEAVE AMA. AMA PAPERWORK SIGNED.
--- NOTE | 2023-10-12 17:52 | W.ED.OVERDOS ---
HPI - Overdose General: Chief Complaint: Overdose Stated Complaint: POSSIBLE OVERDOSE Time Seen by Provider: 10/12/23 17:36 Source: patient and EMS Mode of arrival: EMS History of Present Illness: 18-year-old male presents emergency room via EMS he was [place] lethargic. He is regularly prescribed methadone. It was reported he took 30 mg of methadone this morning which is his normal dose. He took something else as well, he refused to tell us what he had taken. EMS was told by bystanders at the scene that he had also taken some Xanax. He was given Narcan in the field when he arrives here he is awake shivering somewhat tachycardic and nauseous. He denies any injury or any recent illness. He denies the overdose was intentional and he states he was not trying to kill himself he reiterated this several times. screening is negative for suicidality MD complaint: accidental overdose Treatments Prior to Arrival: narcan Review of Systems Const: Denies: fever(s) or chills Card: Denies: chest pain Resp: Denies: dyspnea GI: Denies: abdominal pain : Denies: dysuria, urinary frequency or urinary urgency Musc: Denies: neck pain or back pain Skin/Breast: Denies: rash PFSH ED PFSH: Medical History Psychiatric care Physical Exam Const: COMMON NORMALS: no acute distress GENERAL APPEARANCE: cooperative and comfortable ORIENTATION/CONSCIOUSNESS: Yes awake, Yes oriented to person, Yes oriented to place and Yes oriented to time HENMT: COMMON NORMALS: normocephalic, atraumatic and hearing grossly normal bilaterally HEAD & SCALP: normocephalic and atraumatic Resp: COMMON NORMALS: normal respiratory effort, No retractions, No use of accessory muscles and clear to auscultation bilaterally AUSCULTATION: clear to auscultation bilaterally Cardio: COMMON NORMALS: regular rate, regular rhythm and No murmurs present (Cardio) RATE: regular rate RHYTHM: regular rhythm GI: COMMON NORMALS: Soft to palpation and No hepatosplenomegaly present AUSCULTATION: Yes normoactive bowel sounds PALPATION: Yes Soft to palpation, No Tenderness to palpation present (GI), No Guarding due to palpation present (GI) and Yes No hepatosplenomegaly present Extremity: COMMON NORMALS: normal to inspection, capillary refill normal, no clubbing, cyanosis or edema, no calf tenderness and no pedal edema Neuro: SENSORIUM/ORIENTATION: Yes oriented to person, Yes oriented to place and Yes oriented to time Skin: COMMON NORMALS: no rashes or lesions noted GENERAL SKIN EXAM: no rashes or lesions noted Course Vital Signs: Vital signs: Vital Signs Temperature 98.3 F 10/12/23 17:35 Pulse Rate 119 H 10/12/23 17:35 Blood Pressure 116/83 10/12/23 17:35 Pulse Oximetry 100 10/12/23 17:35 Oxygen Delivery Me thod Room Air 10/12/23 17:35 MDM - Overdose Medical Decision Making Patient decided to leave AMA shortly after a scene where unable to get any lab work done he had his narcotic overdose reversed by Narcan in the field by EMS. I did try to convince him to stay he ripped out his IV and try to leave the unit dripping blood in the room and throughout the hallway. We able to convince him to go back to the room a Band-Aid was put on I try to convince him to stay he refused we did also try to send in another Narcan prescription in for him. He repeatedly denies that this was a suicide attempt. Medical Records I reviewed the patient's medical records. Lab Data I reviewed the patient's lab results. 10/12/23 17:41 10/12/23 17:41 Laboratory Results WBC 6.39 10^3/uL (4.5-13.0) 10/12/23 17:41 RBC 4.75 10^6/uL (3.85-5.65) 10/12/23 17:41 Hgb 14.20 g/dL (13.2-15.6) 10/12/23 17:41 Hct 42.1 % (37-53) 10/12/23 17:41 MCV 88.6 fl (82-101) 10/12/23 17:41 MCH 29.9 pg (27-33) 10/12/23 17:41 MCHC 33.7 g/dL (30-55) 10/12/23 17:41 RDW 11.7 % (12.1-15.1) L 10/12/23 17:41 Plt Count 237 10^3/cmm (157-399) 10/12/23 17:41 MPV 10.4 fL (7.4-10.4) 10/12/23 17:41 Neut % (Auto) 53.9 % 10/12/23 17:41 Lymph % (Auto) 34.0 % 10/12/23 17:41 [place] % (Auto) 6.9 % 10/12/23 17:41 Eos % (Auto) 4.1 % 10/12/23 17:41 Baso % (Auto) 0.8 % 10/12/23 17:41 Neut # (Auto) 3.45 10^3/uL (1.8-8.0) 10/12/23 17:41 Lymph # (Auto) 2.2 10^3/uL (1.5-6.5) 10/12/23 17:41 [place] # (Auto) 0.4 10^3/uL (0.2-0.9) 10/12/23 17:41 Eos # (Auto) 0.3 10^3/uL (0.0-0.8) 10/12/23 17:41 Baso # (Auto) 0.1 10^3/uL (0.0-0.1) 10/12/23 17:41 Nucleated RBC % (auto) 0 % 10/12/23 17:41 Nucleated RBCs # 0.0 /100WBC 10/12/23 17:41 Sodium 146 mmol/L (136-145) H 10/12/23 17:41 Potassium 4.2 mmol/L (3.5-5.1) 10/12/23 17:41 Chloride 108 mmol/L (98-107) H 10/12/23 17:41 Carbon Dioxide 28 mmol/L (22-29) 10/12/23 17:41 Anion Gap 14.2 (5-19) 10/12/23 17:41 BUN 11 mg/dL (6-20) 10/12/23 17:41 Creatinine 0.9 mg/dL (0.7-1.2) 10/12/23 17:41 GFR Calculation 107.6 mL/min (90-130) 10/12/23 17:41 Glucose 86 mg/dL (65-115) 10/12/23 17:41 Calculated Osmolality 301 mOsm/kg (285-295) H 10/12/23 17:41 Calcium 9.5 mg/dL (8.5-10.5) 10/12/23 17:41 Total Bilirubin 0.3 mg/dL (0.15-1.2) 10/12/23 17:41 AST 17 U/L (0-40) 10/12/23 17:41 ALT 15 U/L (0-41) 10/12/23 17:41 Alkaline Phosphatase 64 U/L (40-130) 10/12/23 17:41 Total Protein 6.9 g/dL (6.6-8.7) 10/12/23 17:41 Albumin 4.8 g/dL (3.5-5.2) 10/12/23 17:41 Globulin 2.1 g/dL (1.3-4.6) 10/12/23 17:41 No radiology studies performed this visit Discharge Plan Discharge Patient Disposition: Left Against Medical Advice Clinical Impression: Drug overdose, Opioid dependence, uncomplicated Condition: Stable Prescriptions: New Narcan 4 mg/actuation spray,non-aerosol 4 mg intranasal Q2M PRN (Reason: opioid overdose) Qty: 2 0RF Rx Instructions: spray 1 dose into ONE nostril; alternate nostrils w each dose until help arrives No Action ondansetron 4 mg tablet,disintegrating 4 mg PO Q6H PRN (Reason: nausea and vomiting) Qty: 14 0RF multivitamin Tablet 1 tab PO DAILY PRN (Reason: unknown) methadone 40 mg Tablet,Soluble 20 mg PO QAM Narcan 4 mg/actuation spray,non-aerosol 4 mg intranasal Q2M PRN (Reason: opioid overdose) Qty: 2 0RF Rx Instructions: spray 1 dose into ONE nostril; alternate nostrils w each dose until help arrives Discharge Orders: Discharge ED (Routine); Ordered 10/12/23 Ordered By: Sage Morel Referrals: Tyree Osuna MD [Primary Care Provider] - Discharge Diet: Usual diet Discharge Activity: Resume usual activity Coding Level of Care Code ED Director Of Enterprise Strategy for Areli Hernandez
[2023-10-12 17:55] LABS: Basophils # 0.1 10^3/uL (0.0-0.1); Basophils % 0.8 %; Eosinophils # 0.3 10^3/uL (0.0-0.8); Eosinophils % 4.1 %; Hematocrit 42.1 % (37-53); Lymphocytes # 2.2 10^3/uL (1.5-6.5); Mean Corpuscular HGB Conc 33.7 g/dL (30-55); Mean Corpuscular Hemoglobin 29.9 pg (27-33); Mean Corpuscular Volume 88.6 fl (82-101); Mean Platelet Volume 10.4 fL (7.4-10.4); Monocytes # 0.4 10^3/uL (0.2-0.9); Monocytes % 6.9 %; Neutrophils # 3.45 10^3/uL (1.8-8.0); Neutrophils % 53.9 %; Nucleated Red Blood Cells % 0 %; Platelet Count 237 10^3/cmm (157-399); Red Blood Count 4.75 10^6/uL (3.85-5.65); Red Cell Distribution Width 11.7 % (12.1-15.1); White Blood Count 6.39 10^3/uL (4.5-13.0)
[2023-10-12 18:06] LABS: Alanine Aminotransferase 15 U/L (0-41); Albumin Level 4.8 g/dL (3.5-5.2); Alkaline Phosphatase 64 U/L (40-130); Anion Gap 14.2 (5-19); Aspartate Amino Transferase 17 U/L (0-40); Blood Urea Nitrogen 11 mg/dL (6-20); Calcium 9.5 mg/dL (8.5-10.5); Carbon Dioxide 28 mmol/L (22-29); Chloride 108 mmol/L (98-107); Globulin 2.1 g/dL (1.3-4.6); Glomerular Filtration Rate 107.6 mL/min (90-130); Glucose 86 mg/dL (65-115); Osmolality Calculated 301 mOsm/kg (285-295); Potassium 4.2 mmol/L (3.5-5.1); Sodium 146 mmol/L (136-145); Total Bilirubin 0.3 mg/dL (0.15-1.2); Total Protein 6.9 g/dL (6.6-8.7)
== END 2023-10-12 17:54 | disposition left against medical advice (07) ==
PROVIDERS: Emergency Provider Family Medicine; PCP Family Medicine
DX: T42.4X1A Poisoning by benzodiazepines, accidental (unintentional), initial encounter (principal); F11.20 Opioid dependence, uncomplicated; Z53.29 Procedure and treatment not carried out because of patient's decision for other reasons
CPT/HCPCS: 80053; 85025; 99283